=== PATIENT | male | born 1965 | race Caucasian/White ===

== ENCOUNTER 2025-05-20 06:58 | Day surgery (SDC) | payer OTHER ==
[2025-05-16 16:10] VITALS: BMI 23.1
[~2025-05-20 06:58] MED LIST: EPINEPHrine 0.3 MG in Ophthalmic Irrigation Solution 500 ML IRR SCH
[2025-05-20] MEDS ORDERED: Cyclopentolate 1% Opth Drop 2 ML BOT ONE (08:21)
[2025-05-20] MEDS ORDERED: Lidocaine 1% PF 5 ML VIAL ONE (09:32)
== END 2025-05-20 11:29 | disposition home or self-care (01) ==
LOC: SDC 06:58
PROVIDERS: ATTEND Ophthalmology Retina Specialist
DX: H33.021 Retinal detachment with multiple breaks, right eye (principal); Z90.49 Acquired absence of other specified parts of digestive tract
CPT/HCPCS: 67025; J0166; J2250; J3010